=== PATIENT | male | born 1930 | race Caucasian/White ===

== ENCOUNTER 2019-04-07 05:39 | Observation (INO) ==
[2019-03-31 11:16] LABS: Basophils % 0.3 % (0.0-0.8); Eosinophils # 0.1 10*3/uL (0.0-0.87); Hematocrit 40.7 VOL% (42.0-52.0); Hemoglobin 13.8 GM/DL (14.0-18.0); Immature Granulocytes % 0.5 %; Immature Granulocytes Absolute 0.03 #; Lymphocytes # 1.5 10*3/uL (1.4-4.0); Lymphocytes % 24.3 % (21.2-54.2); Mean Corpuscular HGB Conc 33.9 GM/DL (32-36); Mean Corpuscular Volume 91.7 FL (87-102); Mean Platelet Volume 9.5 FL (9.6-12.0); Monocytes % 8.1 % (1.7-12.7); Neutrophils % 65.8 % (38.7-73.9); Platelet Count 200 T/CUMM (130-400); Red Blood Count 4.44 MC/CUMM (3.8-5.5); Red Cell Distribution Width 12.9 % (9.3-17.3); White Blood Count 6.2 T/CUMM (4-12)
[2019-03-31 11:40] LABS: Calcium 9.8 MG/DL (8.5-10.1); Osmolality,Calculated 281.4 MOS/KG (273-304)
[2019-04-07] MEDS ORDERED: FAMOTIDINE 20 MG TABLET PO ONE (06:00)
[2019-04-07] MEDS ORDERED: LIDOCAINE MPF 1% /EPI 30 ML VIAL ONE (06:27)
[2019-04-07] MEDS ORDERED: MUPIROCIN 2% OINT 22 GM TUBE TOP ONE (06:29)
[2019-04-07] MEDS ORDERED: DEXAMETHASONE 4 MG/1 ML VIAL IV ONE (06:30)
[2019-04-07] MEDS ORDERED: FAMOTIDINE 20 MG TABLET ONE (06:50)
[2019-04-07] MEDS ORDERED: LACTATED RINGERS 1,000 ML IV SCH (07:00)
[2019-04-07] MEDS ORDERED: fentaNYL 100 MCG/2 ML VIAL ONE (08:03)
[2019-04-07] MEDS ORDERED: LABETALOL 100 MG/20 ML VIAL IV ONE (08:03)
[2019-04-07] MEDS ORDERED: LIDOCAINE 2% 5 ML VIAL ONE (08:04)
[2019-04-07] MEDS ORDERED: ONDANSETRON 4 MG/2 ML VIAL ONE (08:49)
[2019-04-07] MEDS ORDERED: ONDANSETRON 4 MG/2 ML VIAL IV PRN (08:50)
[2019-04-07] MEDS ORDERED: SIMVASTATIN 20 MG TABLET PO SCH (09:00)
[2019-04-07] MEDS ORDERED: ACETAMINOPHEN 325 MG TABLET PO PRN (09:25)
[2019-04-07] MEDS ORDERED: POLYETHYLENE GLYCOL POWDER 17 GM PACK PO PRN (09:27)
[2019-04-07] MEDS: FUROSEMIDE 40 MG TABLET PO SCH (10:52)
[2019-04-07] MEDS: COENZYME Q10 100 MG CAPSULE PO SCH (10:53)
[2019-04-07] MEDS: MULTIVITAMIN (CENTRUM) TABLET PO SCH (10:53)
[2019-04-07] MEDS: OMEGA 3 ACID ETHYL ESTERS 1 GM CAPSULE PO SCH (10:53)
[2019-04-07] MEDS: LISINOPRIL 20 MG TABLET PO SCH (10:53)
[2019-04-07] MEDS: METOPROLOL SUCCINATE XL 100 MG TABLET PO SCH (10:53)
[2019-04-07 12:15] LABS: Risk Ratio 2.54; Thyroid Stimulating Hormone 3.52 uIU/ml (0.358-3.74); VLDL CHOLESTEROL 16.2 MG/DL
[2019-04-07] MEDS ORDERED: hydrALAZINE 20 MG/1 ML VIAL IV PRN (12:17)
[2019-04-07] MEDS ORDERED: DEXTROSE 10% 250 ML BAG IV PRN (12:29)
[2019-04-07] MEDS ORDERED: GLUCAGON 1 MG VIAL IM PRN (12:29)
[2019-04-07] MEDS: hydrALAZINE 25 MG TABLET PO SCH ×2 (13:05→21:43)
[2019-04-07] MEDS ORDERED: INSULIN REGULAR 100 UNIT/ML SUBCUT SCH (16:30)
[2019-04-07] MEDS: POTASSIUM CHLORIDE 10 MEQ TABLET PO SCH (18:17)
[2019-04-07 18:34] LABS: Apearance,Urine CLEAR (Clear); Bacteria,Urine Occasional /HPF (Few); Bilirubin,Urine Negative (Negative); Blood, Urine Negative (Negative); Glucose,Urine (UA) Negative (Negative); Ketones,Urine Negative (Negative); Nitrite,Urine Negative (Negative); Protein,Urine Negative; RBC,Urine 2 /HPF (0-4); Urine Color Yellow (Yellow); Urine Specific Gravity 1.008 (1.001-1.035); Urine Urobilinogen < 2.0 EU/DL (0.2-1.0); WBC,Urine <1 /HPF (0-6)
[2019-04-07] MEDS: amLODIPine 10 MG TABLET PO SCH (21:43)
[2019-04-07] MEDS: SIMVASTATIN 20 MG TABLET PO SCH (21:43)
[2019-04-08 05:54] LABS: Basophils % 0.5 % (0.0-0.8); Eosinophils # 0.1 10*3/uL (0.0-0.87); Eosinophils % 1.8 % (0.00-10.9); Hematocrit 39.1 VOL% (42.0-52.0); Hemoglobin 13.4 GM/DL (14.0-18.0); Immature Granulocytes % 0.5 %; Immature Granulocytes Absolute 0.04 #; Lymphocytes # 2.6 10*3/uL (1.4-4.0); Lymphocytes % 34.2 % (21.2-54.2); Mean Corpuscular HGB Conc 34.3 GM/DL (32-36); Mean Corpuscular Volume 90.7 FL (87-102); Mean Platelet Volume 9.8 FL (9.6-12.0); Monocytes % 9.1 % (1.7-12.7); Neutrophils % 53.9 % (38.7-73.9); Platelet Count 210 T/CUMM (130-400); Red Blood Count 4.31 MC/CUMM (3.8-5.5); White Blood Count 7.6 T/CUMM (4-12)
[2019-04-08 06:11] LABS: Bilirubin,Total 0.4 MG/DL (0.2-1.0); Calcium 9.4 MG/DL (8.5-10.1); Total Protein 7.6 G/DL (6.4-8.3)
[2019-04-08] MEDS: hydrALAZINE 25 MG TABLET PO SCH ×3 (07:12→21:22)
[2019-04-08] MEDS: LISINOPRIL 20 MG TABLET PO SCH (08:40)
[2019-04-08] MEDS: METOPROLOL SUCCINATE XL 100 MG TABLET PO SCH (08:41)
[2019-04-08] MEDS: COENZYME Q10 100 MG CAPSULE PO SCH (08:42)
[2019-04-08] MEDS: FUROSEMIDE 40 MG TABLET PO SCH (08:42)
[2019-04-08] MEDS: MULTIVITAMIN (CENTRUM) TABLET PO SCH (08:42)
[2019-04-08] MEDS: OMEGA 3 ACID ETHYL ESTERS 1 GM CAPSULE PO SCH (08:43)
[2019-04-08] MEDS: ASPIRIN EC 81 MG TABLET PO SCH (10:01)
[2019-04-08] MEDS: BACITRACIN OINT 0.9 GM PACK TOP SCH (12:59)
[2019-04-08] MEDS: POTASSIUM CHLORIDE 10 MEQ TABLET PO SCH (16:00)
[2019-04-08] MEDS: ISOSORBIDE DINITRATE 10 MG TABLET PO SCH ×2 (16:00→21:22)
[2019-04-08] MEDS ORDERED: EZETIMIBE 10 MG TABLET PO SCH (21:00)
[2019-04-08] MEDS: amLODIPine 10 MG TABLET PO SCH (21:21)
[2019-04-08] MEDS: SIMVASTATIN 20 MG TABLET PO SCH (21:22)
[2019-04-09 05:51] LABS: Basophils % 0.6 % (0.0-0.8); Eosinophils # 0.2 10*3/uL (0.0-0.87); Eosinophils % 2.6 % (0.00-10.9); Hematocrit 35.4 VOL% (42.0-52.0); Hemoglobin 11.8 GM/DL (14.0-18.0); Immature Granulocytes % 0.7 %; Immature Granulocytes Absolute 0.05 #; Lymphocytes # 2.7 10*3/uL (1.4-4.0); Lymphocytes % 36.8 % (21.2-54.2); Mean Corpuscular HGB Conc 33.3 GM/DL (32-36); Mean Corpuscular Volume 93.2 FL (87-102); Mean Platelet Volume 10.1 FL (9.6-12.0); Monocytes % 10.7 % (1.7-12.7); Neutrophils % 48.6 % (38.7-73.9); Platelet Count 178 T/CUMM (130-400); Red Cell Distribution Width 13.4 % (9.3-17.3); White Blood Count 7.2 T/CUMM (4-12)
[2019-04-09] MEDS: hydrALAZINE 25 MG TABLET PO SCH (06:22)
[2019-04-09 06:27] LABS: Calcium 9.4 MG/DL (8.5-10.1); Osmolality,Calculated 290.1 MOS/KG (273-304)
[2019-04-09 07:58] VITALS: BP 157/77
[2019-04-09] MEDS ORDERED: CHLORTHALIDONE 25 MG TABLET PO SCH (09:00)
[2019-04-09] MEDS: ASPIRIN EC 81 MG TABLET PO SCH (09:33)
[2019-04-09] MEDS: BACITRACIN OINT 0.9 GM PACK TOP SCH (09:33)
[2019-04-09] MEDS: LISINOPRIL 20 MG TABLET PO SCH (09:34)
[2019-04-09] MEDS: ISOSORBIDE DINITRATE 10 MG TABLET PO SCH (09:34)
[2019-04-09] MEDS: MULTIVITAMIN (CENTRUM) TABLET PO SCH (09:43)
[2019-04-09] MEDS: METOPROLOL SUCCINATE XL 100 MG TABLET PO SCH (09:44)
[2019-04-09] MEDS: COENZYME Q10 100 MG CAPSULE PO SCH (09:44)
[2019-04-09] MEDS: OMEGA 3 ACID ETHYL ESTERS 1 GM CAPSULE PO SCH (09:44)
== END 2019-04-09 12:05 | disposition home or self-care (01) ==
LOC: N.5E 05:39 → N.SDSINP 05:39 → N.OR 05:39 → N.SDSINP 05:40 → N.5E 09:59
PROVIDERS: ADMIT Internal Medicine; ATTEND Internal Medicine